=== PATIENT | male | born 1965 | race Caucasian/White ===

== ENCOUNTER 2020-11-09 14:41 | Emergency (ER) | payer OTHER ==
[2020-11-09] MEDS ORDERED: Boostrix 0.5 ML (Tdap) VIAL ONE (14:55)
[2020-11-09] MEDS ORDERED: traMADol HCl 50 MG TAB ONE (14:55)
[2020-11-09] MEDS ORDERED: Ibuprofen 800 MG TAB ONE (14:55)
[2020-11-09] MEDS ORDERED: Bacitracin 1 PK ONE (15:02)
== END 2020-11-09 15:32 | disposition home or self-care (01) ==
LOC: BURERS 14:41
DX: S70.11XA Contusion of right thigh, initial encounter (principal); S50.11XA Contusion of right forearm, initial encounter; Z23 Encounter for immunization; W22.8XXA Striking against or struck by other objects, initial encounter
CPT/HCPCS: 90471; 90715